=== PATIENT | male | born 1965 ===

== ENCOUNTER 2018-12-04 16:51 | Emergency (ER) | payer OTHER ==
[2018-12-04 17:02] VITALS: BP 168/72; PULSE 76; RESP 18; TEMP 98.5; O2SAT 96; BMI 26.6
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
--- NOTE | 2018-12-04 18:50 | RAD ---
Date of service: 12/04/2018 PROCEDURE: Left Knee Radiographs. HISTORY: Pain. COMPARISON: None. FINDINGS: BONES: Normal. No fracture. JOINTS: Mild osteoarthritic changes. JOINT EFFUSION: None. OTHER FINDINGS: None. IMPRESSION: No evidence of acute fracture or dislocation.
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
== END 2018-12-04 18:37 | disposition home or self-care (01) ==
LOC: C.ER 16:51
DX: S70.02XA Contusion of left hip, initial encounter (principal); S80.02XA Contusion of left knee, initial encounter; S40.012A Contusion of left shoulder, initial encounter; S80.12XA Contusion of left lower leg, initial encounter; V09.20XA Pedestrian injured in traffic accident involving unspecified motor vehicles, initial encounter